=== PATIENT | female | born 1955 | race Caucasian/White ===

== ENCOUNTER → 2016-05-07 | Outpatient (CLI) | payer BC, SELFPAY | LOC: KOH-I 09:48 | DX: M51.36 Other intervertebral disc degeneration, lumbar region (principal); M54.16 Radiculopathy, lumbar region; M47.816 Spondylosis without myelopathy or radiculopathy, lumbar region; Z90.49 Acquired absence of other specified parts of digestive tract | CPT/HCPCS: 72110; 73522 ==

== ENCOUNTER → 2016-05-08 | Outpatient (CLI) | payer BC, SELFPAY | LOC: LAB 09:58 | DX: M25.50 Pain in unspecified joint (principal) | CPT/HCPCS: 36415; 84550; 86039; 86060; 86141; 86431 ==

== ENCOUNTER → 2016-05-12 | Outpatient (CLI) | payer BC, SELFPAY | LOC: KOH-I 09:00 → EMI 16:30 | DX: M51.36 Other intervertebral disc degeneration, lumbar region (principal); M54.16 Radiculopathy, lumbar region; M47.816 Spondylosis without myelopathy or radiculopathy, lumbar region; M51.26 Other intervertebral disc displacement, lumbar region | CPT/HCPCS: 72148 ==

== ENCOUNTER 2016-07-07 19:27 | Emergency (ER) | payer BC, SELFPAY ==
[2016-07-07 23:23] LABS: HEMOGLOBIN 10.9 gm/dl (12.3-15.3); RED BLOOD COUNT 3.21 M/UL (4.00-5.10); WHITE BLOOD COUNT 7.5 K/UL (4.5-11.0)
== END 2016-07-08 03:45 | disposition home or self-care (01) ==
LOC: ER1 19:27
PROVIDERS: Family Medicine
DX: R10.9 Unspecified abdominal pain (principal); Z98.0 Intestinal bypass and anastomosis status; Z88.0 Allergy status to penicillin; Z88.8 Allergy status to other drugs, medicaments and biological substances
CPT/HCPCS: 36415; 71020; 74000; 80053; 85025; 96374; 96375; 99284; J1885; J2060; J2270; J2405; J2550; J7030; J7050; J7120; Q9962

== ENCOUNTER 2016-07-10 21:58 | Emergency (ER) | payer BC ==
[2016-07-11 03:13] LABS: HEMOGLOBIN 10.6 gm/dl (12.3-15.3); RED BLOOD COUNT 3.12 M/UL (4.00-5.10)
== END 2016-07-11 09:20 | disposition left against medical advice (07) ==
LOC: ER1 21:58
PROVIDERS: Emergency Medicine
DX: R10.817 Generalized abdominal tenderness (principal); R11.0 Nausea; Z90.49 Acquired absence of other specified parts of digestive tract; Z88.0 Allergy status to penicillin; Z88.1 Allergy status to other antibiotic agents
CPT/HCPCS: 36415; 74022; 80053; 83690; 84484; 85025; 93005; 96361; 96374; 96375; 96376; 99284; J2270; J2765; J7030

== ENCOUNTER 2016-08-07 14:59 | Emergency (ER) | payer BC ==
[2016-08-07 17:02] LABS: HEMOGLOBIN 11.6 gm/dl (12.3-15.3); RED BLOOD COUNT 3.4 M/UL (4.00-5.10)
[2016-08-07 17:34] LABS: BUN/CREATININE RATIO 14 (0-10)
== END 2016-08-07 18:10 | disposition home or self-care (01) ==
LOC: ER1 14:59
PROVIDERS: Emergency Medicine
DX: R53.1 Weakness (principal); Z88.0 Allergy status to penicillin; Z88.1 Allergy status to other antibiotic agents; Z79.82 Long term (current) use of aspirin; Z79.899 Other long term (current) drug therapy
CPT/HCPCS: 36415; 74022; 80053; 81001; 83690; 84484; 85025; 87086; 93005; 99285

== ENCOUNTER 2020-03-11 12:51 | Emergency (ER) | payer BC, OTHER ==
[~2020-03-11 12:51] MED LIST: ALPRAZOLAM0.5 MG PO; ASPIRIN EC81 MG PO; BENTYL 20MG TAB20 MG PO; HORMONE CREAM TOP; HYDROCHLOROTHIA25 MG PO; K-DUR TAB 20 M20 MEQ PO; NORCO 5-325 TA1 EACH PO; PAXIL30 MG PO; PHENERGAN 25 MG25 M1 PO; PROMETRIUM 200200 MG PO; PROTONIX40 MG PO; SYNTHROID112 MCG PO; TOPAMAX 100 MG100 MG PO; ULTRAM50 MG PO; WELLBUTRIN XL300 MG PO; ZYRTEC10 M3 PO
[2020-03-11 16:22] LABS: HEMOGLOBIN 14.8 gm/dl (12.3-15.3); RED BLOOD COUNT 4.53 M/UL (4.00-5.10); WHITE BLOOD COUNT 7.1 K/UL (4.5-11.0)
[2020-03-11 16:45] LABS: BUN/CREATININE RATIO 17 (0-10)
[2020-03-11] MEDS ORDERED: ZOFRAN ODT 4 MG4 MG GT (17:38)
[2020-03-11] MEDS ORDERED: BLOOD TEST (17:41)
== END 2020-03-11 19:52 | disposition home or self-care (01) ==
LOC: ER1 12:51
PROVIDERS: Family Medicine
DX: U07.1 COVID-19 (principal); E86.0 Dehydration; Z88.0 Allergy status to penicillin; Z88.1 Allergy status to other antibiotic agents
CPT/HCPCS: 36415; 71045; 80053; 82550; 82553; 83874; 84484; 85025; 99285; J7030

== ENCOUNTER 2020-03-26 05:51 | Observation (INO) | payer BC, OTHER ==
[~2020-03-26] VITALS: Ht 167.6 cm; Wt 55.3 kg
[~2020-03-26 05:51] MED LIST changes: +BLOOD TEST; +ZOFRAN ODT 4 MG4 MG GT
[2020-03-26] MEDS ORDERED: GABAPENTIN300 MG PO (06:42)
[2020-03-26] MEDS ORDERED: TRAZODONE HCL100 MG PO (06:42)
[2020-03-26] MEDS ORDERED: INDERAL TAB 1010 MG PO (06:43)
[2020-03-26] MEDS ORDERED: ZANAFLEX4 M1 PO (06:45)
[2020-03-26 06:49] LABS: HEMOGLOBIN 12.5 gm/dl (12.3-15.3); RED BLOOD COUNT 3.92 M/UL (4.00-5.10); WHITE BLOOD COUNT 14.1 K/UL (4.5-11.0)
[2020-03-26] MEDS ORDERED: BONIVA150 MG PO (06:50)
[2020-03-26 07:06] LABS: BUN/CREATININE RATIO 19 (0-10)
[2020-03-26] MEDS ORDERED: BUSPIRONE HCL5 MG PO (11:45)
[2020-03-26] MEDS ORDERED: WELLBUTRIN 75 M75 MG PO (11:45)
[2020-03-26] MEDS ORDERED: CYANOCOBAL1000 MCG/1 INJ (11:46)
[2020-03-26] MEDS ORDERED: AIMOVIG AU140 MG/1 M SQ (11:46)
[2020-03-26] MEDS ORDERED: HYDROCHLOROTHIA25 MG PO (11:47)
[2020-03-26] MEDS ORDERED: CLARITIN-D 241 EACH PO (11:47)
[2020-03-26] MEDS ORDERED: PAXIL10 MG PO (11:48)
[2020-03-26] MEDS ORDERED: K-DUR TAB 20 M20 MEQ PO (11:48)
[2020-03-26] MEDS ORDERED: FOLIC ACID 1 MG1 MG PO (11:48)
[2020-03-26] MEDS ORDERED: SYNTHROID112 MCG PO (19:26)
[2020-03-26] MEDS ORDERED: NITROFURANTOIN100 MG PO (19:50)
== END 2020-03-26 21:42 | disposition home or self-care (01) ==
LOC: ER1 05:51 → CDU 10:58 → PROG CARE 10:58
PROVIDERS: Emergency Medicine; ADMIT Internal Medicine
DX: I95.89 Other hypotension (principal); I12.9 Hypertensive chronic kidney disease with stage 1 through stage 4 chronic kidney disease, or unspecified chronic kidney disease; N18.30 Chronic kidney disease, stage 3 unspecified; N30.00 Acute cystitis without hematuria; U07.1 COVID-19; D72.829 Elevated white blood cell count, unspecified; E03.9 Hypothyroidism, unspecified; F41.9 Anxiety disorder, unspecified; F32.9 Major depressive disorder, single episode, unspecified; G43.909 Migraine, unspecified, not intractable, without status migrainosus; Z66 Do not resuscitate; Z88.0 Allergy status to penicillin; Z88.1 Allergy status to other antibiotic agents; Z79.82 Long term (current) use of aspirin; Z79.899 Other long term (current) drug therapy
CPT/HCPCS: 71045; 80053; 81001; 82550; 82553; 83605; 83690; 83880; 84439; 84443; 84484; 85025; 85379; 85610; 85730; 87040; 87086; 93005; 94664; 94760; 96365; 96375; 99285; G0378; J0696; J7030; U0002

== ENCOUNTER 2020-06-28 21:50 | Emergency (ER) | payer BC, OTHER ==
[~2020-06-28 21:50] MED LIST changes: +AIMOVIG AU140 MG/1 M SQ; +BONIVA150 MG PO; +BUSPIRONE HCL5 MG PO; +CLARITIN-D 241 EACH PO; +CYANOCOBAL1000 MCG/1 INJ; +FOLIC ACID 1 MG1 MG PO; +GABAPENTIN300 MG PO; +INDERAL TAB 1010 MG PO; +NITROFURANTOIN100 MG PO; +PAXIL10 MG PO; +TRAZODONE HCL100 MG PO; +WELLBUTRIN 75 M75 MG PO; +ZANAFLEX4 M1 PO
== END 2020-06-28 22:22 | disposition left against medical advice (07) ==
LOC: ER1 21:50
DX: Z53.21 Procedure and treatment not carried out due to patient leaving prior to being seen by health care provider (principal)

== ENCOUNTER 2020-07-02 19:52 | Emergency (ER) | payer BC, OTHER ==
[2020-07-02 21:12] LABS: HEMOGLOBIN 14.7 gm/dl (12.3-15.3); RED BLOOD COUNT 4.6 M/UL (4.00-5.10); WHITE BLOOD COUNT 8.7 K/UL (4.5-11.0)
[2020-07-02] MEDS ORDERED: ZOFRAN ODT 4 MG4 MG SL (23:29)
[2020-07-02] MEDS ORDERED: COLACE 100MG C100 MG PO (23:29)
== END 2020-07-02 23:49 | disposition home or self-care (01) ==
LOC: ER1 19:52
PROVIDERS: Nurse Practitioner
DX: K59.00 Constipation, unspecified (principal); R11.2 Nausea with vomiting, unspecified; E03.9 Hypothyroidism, unspecified; Z88.0 Allergy status to penicillin; Z88.8 Allergy status to other drugs, medicaments and biological substances; Z90.49 Acquired absence of other specified parts of digestive tract; Z90.89 Acquired absence of other organs; Z90.710 Acquired absence of both cervix and uterus
CPT/HCPCS: 80053; 83605; 83690; 85025; 96365; 96375; 99284; J1200; J2765

== ENCOUNTER 2020-09-25 19:27 | Emergency (ER) | payer BC ==
[~2020-09-25 19:27] MED LIST changes: +COLACE 100MG C100 MG PO; +ZOFRAN ODT 4 MG4 MG SL
[2020-09-26 00:01] LABS: HEMOGLOBIN 13.5 gm/dl (12.3-15.3); RED BLOOD COUNT 4.07 M/UL (4.00-5.10)
[2020-09-26 00:27] LABS: BUN/CREATININE RATIO 16 (0-10)
[2020-09-26] MEDS ORDERED: KLOR-CON M1010 MEQ PO (03:23)
== END 2020-09-26 03:29 | disposition home or self-care (01) ==
LOC: ER1 19:27
PROVIDERS: Physician Assistant
DX: S06.9X9A Unspecified intracranial injury with loss of consciousness of unspecified duration, initial encounter (principal); S00.83XA Contusion of other part of head, initial encounter; I12.9 Hypertensive chronic kidney disease with stage 1 through stage 4 chronic kidney disease, or unspecified chronic kidney disease; N18.9 Chronic kidney disease, unspecified; Z90.710 Acquired absence of both cervix and uterus; Z90.49 Acquired absence of other specified parts of digestive tract; Z90.89 Acquired absence of other organs; Z88.6 Allergy status to analgesic agent; E87.6 Hypokalemia; W22.8XXA Striking against or struck by other objects, initial encounter
CPT/HCPCS: 70450; 71250; 72125; 73030; 73502; 80053; 81001; 82550; 82553; 83874; 83880; 84484; 85025; 99284

== ENCOUNTER → 2021-01-22 | Outpatient (CLI) | payer BC ==
[~2021-01-22] MED LIST changes: +KLOR-CON M1010 MEQ PO
== END ==
LOC: EMI 13:00
DX: G44.89 Other headache syndrome (principal); G43.009 Migraine without aura, not intractable, without status migrainosus
CPT/HCPCS: 70551

== ENCOUNTER → 2021-05-08 | Outpatient (CLI) | payer BC, OTHER | LOC: ECHO 13:15 | DX: R06.00 Dyspnea, unspecified (principal); M79.89 Other specified soft tissue disorders; I65.23 Occlusion and stenosis of bilateral carotid arteries; I08.8 Other rheumatic multiple valve diseases | CPT/HCPCS: ECHO; 93306; 93880 ==

== ENCOUNTER → 2021-05-29 | Outpatient (CLI) | payer BC | LOC: EMI 13:00 | DX: M47.26 Other spondylosis with radiculopathy, lumbar region (principal) | CPT/HCPCS: 72148 ==

== ENCOUNTER → 2021-06-13 | Outpatient (CLI) | payer BC | LOC: EMI 13:30 | DX: M25.512 Pain in left shoulder (principal); S43.402A Unspecified sprain of left shoulder joint, initial encounter; Z98.890 Other specified postprocedural states | CPT/HCPCS: 73221 ==

== ENCOUNTER → 2021-10-09 | Outpatient (CLI) | payer BC | LOC: EMI 10-08 13:00 → MRI 10:43 | DX: M25.512 Pain in left shoulder (principal); S43.402A Unspecified sprain of left shoulder joint, initial encounter; V89.2XXA Person injured in unspecified motor-vehicle accident, traffic, initial encounter; Z98.890 Other specified postprocedural states | CPT/HCPCS: 73221 ==

== ENCOUNTER 2021-10-28 18:50 | Emergency (ER) | payer BC ==
[2021-10-28 19:42] LABS: HEMOGLOBIN 15.7 gm/dl (12.3-15.3); RED BLOOD COUNT 4.72 M/UL (4.00-5.10); WHITE BLOOD COUNT 13.2 K/UL (4.5-11.0)
[2021-10-28 20:08] LABS: BUN/CREATININE RATIO 22 (0-10)
[2021-10-28] MEDS ORDERED: ZOFRAN 4 MG TAB4 MG PO (23:55)
[2021-10-28] MEDS ORDERED: CIPRO500 MG PO (23:55)
[2021-10-28] MEDS ORDERED: METRONIDAZOLE500 MG PO (23:55)
[2021-10-28] MEDS ORDERED: HYDROCODON-ACE1 EAC4 PO (23:55)
== END 2021-10-29 00:23 | disposition home or self-care (01) ==
LOC: ER1 18:50
PROVIDERS: Physician Assistant
DX: K57.32 Diverticulitis of large intestine without perforation or abscess without bleeding (principal); Z98.84 Bariatric surgery status; Z90.89 Acquired absence of other organs; Z88.0 Allergy status to penicillin
CPT/HCPCS: 80053; 81001; 82150; 82550; 82553; 83690; 84484; 85025; 93005; 99284